=== PATIENT | male | born 1985 | race Caucasian/White ===

== ENCOUNTER → 2016-10-19 | Outpatient (CLI) | payer BC ==
[~2016-10-19] MED LIST: CHOL2000 PO; LEVO100T7 PO; Levothyroxine PO; MULT-506 PO; Multivitamin PO; OMEG10007 PO; Omega-3 PO; PERFLUTREN LIPID MICROSPHERE (DEFINITY) IV ONE; VITA400C15 PO; VITA400C3 PO
--- NOTE | 2016-10-19 18:20 | ECHOCARDIOGRAM REPORT ---
*NOTICE TO RECEIVING LIBERTARIAN AGENCY This information is strictly Confidential and protected under [place] law. [place] law prohibits you from making any further disclosure of this information unless further disclosure is expressly permitted by the written consent of the person to whom it pertains or is authorized by law. A general authorization for the release of medical or other information is not sufficient for this purpose. Hospital accepts no responsibility if the information is made available to any other person, INCLUDING THE PATIENT. Interpretation Summary * Name: BONNIE WOODALL Study Date: 10/19/2016 02:47 PM BP: 139/74 mmHg * Patient Location: [facility] HR: 73 * : 1985 (M/d/yyyy) Gender: Male Height: 69 in * Age: 31 yrs Ethnicity: CA Weight: 255 lb * Ordering Physician: Sonia Rivers * Referring Physician: Sonia Rivers D.O. * Performed By: Darcy Deleon * * Reason For Study: Heart Murmur, Family History of Cardiac Arrest and Myocardial Non-compaction * BSA: 2.3 m2 * -- Conclusions -- * 1. Normal LV size. Normal LV wall thickness. * 2. Normal LV systolic function. LVEF 55-60 %. No regional wall motion abnormalities. * 3. Normal RV size and function. * 4. No significant valvular pathology. * 5. No evidence of LV noncompaction with definity. * 6. No prior studies for comparison. Procedure Details * A complete two-dimensional transthoracic echocardiogram was performed (2D, M-mode, Doppler and color flow Doppler). * The study was technically difficult. * The study was technically difficult, but visualization was adequate with the administration of Definity ultrasound contrast. * A contrast injection of Definity was performed to improve assessment of LV function. * Contrast was injected into an intravenous site in the right arm. * One vial of Definity ultrasound contrast was diluted in normal saline to a total volume of 10 ml. A total of '3' ml of solution was administered during imaging. * Lot # [id number] of Definity utilized for procedure. * Expiration date 1Dec17. * The attending nurse who injected the contrast agent was Yael Gavin RN. Left Ventricle * The left ventricle is grossly normal size. * There is normal left ventricular wall thickness. * Ejection Fraction = 55-60%. * No regional wall motion abnormalities noted. * No evidence of noncompaction with definity Right Ventricle * The right ventricle is grossly normal size. * The right ventricular systolic function is normal as assessed by tricuspid annular plane systolic excursion (TAPSE) (normal >1.5 cm). Atria * The left atrial size is normal. * Borderline right atrial enlargement. * No ASD detected; PFO is not assessed. Mitral Valve * The mitral valve is grossly normal. * There is no mitral valve stenosis. * There is trace mitral regurgitation. Tricuspid Valve * The tricuspid valve is not well visualized, but is grossly normal. * There is no tricuspid stenosis. * Significant tricuspid regurgitation is absent. Aortic Valve * The aortic valve opens well. * The aortic valve is trileaflet. * No hemodynamically significant valvular aortic stenosis. * There is no significant aortic regurgitation. Pulmonic Valve * The pulmonary valve is inadequately visualized, but the Doppler data is adequate for interpretation. * There is no pulmonic valvular stenosis. * Trace pulmonic valvular regurgitation. Great Vessels * The aortic root and proximal ascending aorta are normal sized. * No Doppler or imaging evidence of an aortic coarctation. Pericardium/Pleural * There is no pericardial effusion. MMode 2D Measurements and Calculations IVSd 0.85 cm IVSs 1.1 cm LVIDd 4.9 cm LVIDs 2.8 cm LVPWd 1.1 cm LVPWs 2.0 cm IVS/LVPW 0.80 FS 43.2 % EDV(Teich) 113.4 ml ESV(Teich) 29.3 ml EF(Teich) 74.1 % EDV(cubed) 118.5 ml ESV(cubed) 21.8 ml EF(cubed) 81.6 % % IVS thick 33.4 % % LVPW thick 94.3 % LV mass(C)d 165.1 grams LV mass(C)dI 72.1 grams/m\S\2 LV mass(C)s 159.5 grams LV mass(C)sI 69.6 grams/m\S\2 CO(Teich) 6.0 l/min CI(Teich) 2.6 l/min/m\S\2 SV(Teich) 84.1 ml SI(Teich) 36.7 ml/m\S\2 CO(cubed) 6.9 l/min CI(cubed) 3.0 l/min/m\S\2 SV(cubed) 96.7 ml SI(cubed) 42.2 ml/m\S\2 Ao root diam 2.4 cm Ao root area 4.5 cm\S\2 ACS 1.9 cm LA dimension 3.6 cm LA/Ao 1.5 LVAd ap4 43.1 cm\S\2 LVLd ap4 10.5 cm EDV(MOD-sp4) 146.0 ml LVAs ap4 20.4 cm\S\2 LVLs ap4 7.3 cm ESV(MOD-sp4) 47.3 ml EF(MOD-sp4) 67.6 % LVAd ap2 36.3 cm\S\2 LVLd ap2 9.5 cm EDV(MOD-sp2) 113.0 ml LVAs ap2 17.8 cm\S\2 LVLs ap2 7.0 cm ESV(MOD-sp2) 37.5 ml EF(MOD-sp2) 66.8 % CO(MOD-sp4) 7.0 l/min CI(MOD-sp4) 3.1 l/min/m\S\2 SV(MOD-sp4) 98.7 ml SI(MOD-sp4) 43.1 ml/m\S\2 CO(MOD-sp2) 5.4 l/min CI(MOD-sp2) 2.3 l/min/m\S\2 SV(MOD-sp2) 75.5 ml SI(MOD-sp2) 33.0 ml/m\S\2 Doppler Measurements and Calculations MV E max jonathan 95.1 cm/sec MV A max jonathan 58.7 cm/sec MV E/A 1.6 MV dec time 0.18 sec Ao V2 max 173.7 cm/sec Ao max PG 12.1 mmHg Ao max PG (full) 8.8 mmHg LV V1 max PG 3.3 mmHg LV V1 max 90.4 cm/sec PA V2 max 138.5 cm/sec PA max PG 7.7 mmHg PI max jonathan 129.0 cm/sec PI max PG 6.7 mmHg PI dec slope 186.1 cm/sec\S\2 PI P1/2t 202.9 msec
== END | disposition home or self-care (01) ==
LOC: C.CPL 14:39
PROVIDERS: ATTEND Family Medicine
DX: R01.1 Cardiac murmur, unspecified (principal); Z82.41 Family history of sudden cardiac death

== ENCOUNTER 2017-02-07 18:16 | Emergency (ER) | payer BC ==
[~2017-02-07] VITALS: Ht 175.3 cm; Wt 120.7 kg
[~2017-02-07 18:16] MED LIST changes: -CHOL2000 PO; -LEVO100T7 PO; -MULT-506 PO; -OMEG10007 PO; -PERFLUTREN LIPID MICROSPHERE (DEFINITY) IV ONE; -VITA400C3 PO
[2017-02-07 18:36] VITALS: TEMP 36.6; Ht 175.3 cm; Wt 120.7 kg
[2017-02-07] MEDS ORDERED: ASPIRIN 81 MG CHEW PO STA (18:40)
[2017-02-07] MEDS ORDERED: ALUMINUM/MAGNESIUM SUSP 30 ML UDC PO STA (18:48)
[2017-02-07] MEDS ORDERED: LIDOCAINE HCL 2% VISC SOLN 20 ML UDC PO STA (18:48)
--- NOTE | 2017-02-07 19:00 | EMERGENCY ROOM VISIT NOTE ---
History Report prepared by Abi: Raymond El Under the Supervision of: Dr. Octavia Escobedo M.D. First contact with patient: 18:40 Chief Complaint: SHORTNESS OF BREATH Stated Complaint: SOB LIGHTHEADED History of Present Illness The patient is a 31 year old male who presents to the Emergency Room via EMS with complaints of resolving chest pain that started an hour ago. He says that he was grocery shopping, and started to get lightheaded, dizzy, and nauseous. The patient states that he thought he may have been getting a cold since members of his family currently have a cold, but when he started driving home, his chest started tightening up with some shortness of breath. He says that he had a dull pain in his chest, and his feet and fingers started getting tingly. The patient pulled over and called 911. He says that most of his symptoms have resolved, but he still feels a bit of chest discomfort and his mouth is very dry. He denies any abdominal pain or vomiting. The patient is wondering whether he had a panic attack, because he was researching his symptoms on his phone while he was grocery shopping. He has never had a panic attack before. The patient does have a family history of heart issues, and his cousin recently at the age of 38 from cardiomyopathy. The patient's only daily medication is Levothyroxine. He did have an echo over the winter, which was fine. He says that he works out, and he has not had any difficulty with exertion. Source of History: patient Onset: An hour ago Position: chest Quality: dull, other (tightness) Timing: other (resolving) Associated Symptoms: + SOB, + nausea, No abdominal pain, No vomiting Note: Associated symptoms: Lightheadedness, dizziness. Feet and fingers got tingly while driving. Review of Systems See HPI for pertinent positives & negatives. A total of 10 systems reviewed and were otherwise negative. Past Medical & Surgical Medical Problems: (1) Hypothyroidism (2) Hypothyroidism Nos Family History Cancer Diabetes mellitus Heart disease Hypertension Lung disease Social History Smoking Status: Never Smoker Smokeless Tobacco Use: No Alcohol Use: occasionally Marital Status: Housing Status: lives with family Occupation Status: employed Current/Historical Medications Scheduled Cholecalciferol (Vitamin D3), 2,000 INTER.UNIT PO DAILY Fish Oil (Camak-3), 1 CAP PO DAILY Levothyroxine Sodium (Levothyroxine Sodium), 100 MCG PO DAILY Multivitamin (Multivitamin), 1 TAB PO DAILY Vitamin E (Vitamin E 400 Iu), 400 INTER.UNIT PO DAILY Allergies Coded Allergies: Penicillins (Verified Allergy, Unknown, HIVES, 01/27/15) Physical Exam Vital Signs Date Time Temp Pulse Resp B/P Pulse Ox O2 Delivery O2 Flow Rate FiO2 02/07/17 20:58 79 18 112/65 98 02/07/17 19:48 72 16 120/68 100 Room Air 02/07/17 19:01 69 02/07/17 18:55 Room Air 02/07/17 18:36 36.6 84 18 132/76 99 Physical Exam Vital signs reviewed. General: Well-appearing 31 year old male, in no significant distress. HEENT: No scleral icterus, PERRLA, neck supple. Atraumatic. Cardiovascular: Regular rate and rhythm, no extra sounds. Pulmonary: Clear to auscultation bilaterally, normal work of breathing. Abdomen: Soft, nontender, nondistended, positive bowel sounds. Musculoskeletal: Atraumatic, no peripheral edema. Neurologic: Patient awake alert and oriented x 3, full strength in all 4 extremities. Cranial nerves 2 through 12 grossly intact. Skin: Warm, dry, no rash Medical Decision & Procedures ER Provider Diagnostic Interpretation: X-ray results as stated below per interpretation by me and the radiologist: CHEST ONE VIEW PORTABLE CLINICAL HISTORY: SOB, CP COMPARISON STUDY: No previous studies for comparison. FINDINGS: The bones soft tissues and hemidiaphragms are normal. The cardiomediastinal silhouette is normal. The lungs are clear. The pulmonary vasculature is normal. IMPRESSION: Negative chest. Electronically signed by: Adrian Hannah M.D. 02/07/2017 7:09 PM Dictated Date/Time: 02/07/2017 7:08 PM Laboratory Results 02/07/17 18:55 Red Blood Count 5.20, Mean Corpuscular Volume 84.8, Mean Corpuscular Hemoglobin 30.0, Mean Corpuscular Hemoglobin Concent 35.4, Mean Platelet Volume 9.5, Neutrophils (%) (Auto) 55.2, Lymphocytes (%) (Auto) 35.2, Monocytes (%) (Auto) 7.2, Eosinophils (%) (Auto) 2.1, Basophils (%) (Auto) 0.3, Neutrophils # (Auto) 3.21, Lymphocytes # (Auto) 2.05, Monocytes # (Auto) 0.42, Eosinophils # (Auto) 0.12, Basophils # (Auto) 0.02 02/07/17 18:55 Test 02/07/17 18:55 02/07/17 19:04 02/07/17 20:33 White Blood Count 5.82 K/uL (4.8-10.8) Red Blood Count 5.20 M/uL (4.7-6.1) Hemoglobin 15.6 g/dL (14.0-18.0) Hematocrit 44.1 % (42-52) Mean Corpuscular Volume 84.8 fL (80-100) Mean Corpuscular Hemoglobin 30.0 pg (25-34) Mean Corpuscular Hemoglobin Concent 35.4 g/dl (32-36) Platelet Count 173 K/uL (130-400) Mean Platelet Volume 9.5 fL (7.4-10.4) Neutrophils (%) (Auto) 55.2 % Lymphocytes (%) (Auto) 35.2 % Monocytes (%) (Auto) 7.2 % Eosinophils (%) (Auto) 2.1 % Basophils (%) (Auto) 0.3 % Neutrophils # (Auto) 3.21 K/uL (1.4-6.5) Lymphocytes # (Auto) 2.05 K/uL (1.2-3.4) Monocytes # (Auto) 0.42 K/uL (0.11-0.59) Eosinophils # (Auto) 0.12 K/uL (0-0.5) Basophils # (Auto) 0.02 K/uL (0-0.2) RDW Standard Deviation 39.6 fL (36.4-46.3) RDW Coefficient of Variation 12.9 % (11.5-14.5) Immature Granulocyte % (Auto) 0.0 % Immature Granulocyte # (Auto) 0.00 K/uL (0.00-0.02) Anion Gap 7.0 mmol/L (3-11) Est Creatinine Clear Calc Drug Dose 116.6 ml/min Estimated GFR () 94.1 Estimated GFR (Non- 81.2 BUN/Creatinine Ratio 11.4 (10-20) Calcium Level 8.6 mg/dl (8.5-10.1) Magnesium Level 2.2 mg/dl (1.8-2.4) Total Bilirubin 0.6 mg/dl (0.2-1) Direct Bilirubin 0.1 mg/dl (0-0.2) Aspartate Amino Transf (AST/SGOT) 27 U/L (15-37) Alanine Aminotransferase (ALT/SGPT) 49 U/L (12-78) Alkaline Phosphatase 52 U/L (45-117) Total Creatine Kinase 380 U/L (39-308) Creatine Kinase MB 1.1 ng/ml (0.5-3.6) Creatine Kinase MB Ratio 0.3 (0-3.0) Total Protein 8.3 gm/dl (6.4-8.2) Albumin 4.5 gm/dl (3.4-5.0) Thyroid Stimulating Hormone (TSH) 5.000 uIu/ml (0.300-4.500) Bedside D-Dimer 60 ng/mlFEU (0-450) Bedside Troponin I 0.000 ng/ml (0-0.045) Laboratory results per my review. Medications Administered Medications (Trade) Dose Ordered Sig/Amna Route Start Time Stop Time Status Last Admin Dose Admin Aspirin (Aspirin Chew) 324 mg NOW STAT PO 02/07/17 18:40 02/07/17 18:42 DC 02/07/17 19:08 324 MG Lidocaine HCl (Viscous Lidocaine 2% Soln) 10 ml NOW STAT PO 02/07/17 18:48 02/07/17 18:50 DC 02/07/17 19:08 10 ML Al Hydroxide/Mg Hydroxide (Maalox Susp) 30 ml NOW STAT PO 02/07/17 18:48 02/07/17 18:50 DC 02/07/17 19:08 30 ML ECG Indication: chest pain Rate (beats per minute): 70 Rhythm: normal sinus Findings: no acute ischemic change, no ectopy, other (incomplete RBBB, possible LVH) ED Course 1839: Ordered Aspirin Chew 324 mg PO. 1845: Past medical records reviewed. The patient was evaluated in room C1B. A complete history and physical examination was performed. 1847: Ordered Maalox Susp 30 ml PO, Viscous Lidocaine 2% Soln 10 ml PO. Medical Decision Differential diagnosis: Etiologies such as cardiac ischemia, aortic dissection, pulmonary embolism, pneumonia, pneumothorax, musculoskeletal, infections, pericarditis, myocarditis , esophageal rupture, gastrointestinal, as well as others were entertained. This patient was evaluated and appeared to be in no significant distress. IV access was obtained and laboratory work was drawn. The patient was placed on the property assessment monitor and found to be in a normal sinus rhythm. He was given 324 mg of aspirin to chew. Patient did receive a GI cocktail. EKG reveals no acute ischemic change. Laboratory work reveals negative troponin 2. The patient seems to have significant anxiety surrounding a cousin's early related to cardiomyopathy. He has had an normal echo which was reviewed. The patient was given a prescription for Prilosec as I do believe this is GI. He will follow-up with his primary care physician for reevaluation and consideration of further cardiac testing if warranted. He will return to the ER for worsening of symptoms or any medical concerns. Impression Primary Impression: Substernal chest pain Scribe Attestation The scribe's documentation has been prepared under my direction and personally reviewed by me in its entirety. I confirm that the note above accurately reflects all work, treatment, procedures, and medical decision making performed by me. Departure Information Patient Instructions My [facility]
[2017-02-07 19:09] LABS: BASO % 0.3 %; BASO ABS # 0.02 K/uL (0-0.2); COMPLETE YES; EOS % 2.1 %; HEMATOCRIT 44.1 % (42-52); LYMPH % 35.2 %; LYMPH ABS # 2.05 K/uL (1.2-3.4); MEAN CELL VOLUME 84.8 fL (80-100); MEAN CORPUSCULAR HGB CONC 35.4 g/dl (32-36); MEAN PLATELET VOLUME 9.5 fL (7.4-10.4); MONO % 7.2 %; NEUT % 55.2 %; PLATELET COUNT 173 K/uL (130-400); WHITE BLOOD COUNT 5.82 K/uL (4.8-10.8)
--- NOTE | 2017-02-07 19:10 | DIAGNOSTIC IMAGING REPORT ---
CHEST ONE VIEW PORTABLE CLINICAL HISTORY: SOB, CP COMPARISON STUDY: No previous studies for comparison. FINDINGS: The bones soft tissues and hemidiaphragms are normal. The cardiomediastinal silhouette is normal. The lungs are clear. The pulmonary vasculature is normal. IMPRESSION: Negative chest. Electronically signed by: Adrian Hannah M.D. 02/07/2017 7:09 PM Dictated Date/Time: 02/07/2017 7:08 PM
[2017-02-07 19:29] LABS: BUN/CREATININE RATIO 11.4 (10-20); CALCIUM 8.6 mg/dl (8.5-10.1); CREATININE 1.2 mg/dl (0.60-1.40); MAGNESIUM 2.2 mg/dl (1.8-2.4); POTASSIUM 3.5 mmol/L (3.5-5.1)
[2017-02-07 19:40] LABS: CKMB/CK RATIO 0.3 (0-3.0)
[2017-02-07] MEDS ORDERED: CHOL2000 PO (20:56)
[2017-02-07] MEDS ORDERED: LEVO100T7 PO (20:56)
[2017-02-07] MEDS ORDERED: OMEG10007 PO (20:56)
[2017-02-07] MEDS ORDERED: MULT-506 PO (20:56)
[2017-02-07] MEDS ORDERED: VITA400C3 PO (20:56)
[2017-02-07 20:58] VITALS: BP 112/65; PULSE 79; O2SAT 98
== END 2017-02-07 21:00 | disposition home or self-care (01) ==
LOC: C.EDB 18:17 → C.EDC 21:00
DX: R07.9 Chest pain, unspecified (principal); R06.02 Shortness of breath; E03.9 Hypothyroidism, unspecified; Z79.899 Other long term (current) drug therapy; Z88.0 Allergy status to penicillin; Z80.9 Family history of malignant neoplasm, unspecified; Z83.3 Family history of diabetes mellitus; Z82.49 Family history of ischemic heart disease and other diseases of the circulatory system

== ENCOUNTER → 2017-02-16 | Outpatient (CLI) | payer BC ==
[~2017-02-16] MED LIST changes: +CHOL2000 PO; +LEVO100T7 PO; -Levothyroxine PO; +MULT-506 PO; -Multivitamin PO; +OMEG10007 PO; -Omega-3 PO; -VITA400C15 PO; +VITA400C3 PO
--- NOTE | 2017-02-16 17:11 | EXERCISE STRESS TEST ---
This stress test is being performed because of a chest pain syndrome. The patient exercised for 12 minutes and 24 seconds on a standard Aldo protocol attaining 14.2 METS and a peak heart rate of 169 beats per minute (88% predicted maximum). The test was terminated due to fatigue. The patient did not experience chest discomfort. Initial blood pressure was 129/64 and this increased to 202/51 at peak exertion. Baseline EKG shows normal sinus rhythm without abnormalities. Throughout exercise and recovery, the ST segments remained normal. There are no dysrhythmias. CONCLUSIONS: 1. Negative ECG treadmill test predicting a low probability of significant coronary artery disease. 2. No exercise induced chest pain. 3. No dysrhythmias.
== END | disposition home or self-care (01) ==
LOC: C.CPL 08:28
PROVIDERS: ATTEND Family Medicine
DX: R07.9 Chest pain, unspecified (principal)